=== PATIENT | male | born 1965 | race Caucasian/White ===

== ENCOUNTER → 2016-12-09 | Outpatient (CLI) | payer MEDICARE ==
[~2016-12-09] MED LIST: ASPIR 8181 MG PO; CRESTOR40 MG PO; DOXYCYCLINE HY100 M2 PO; JANUVIA 50 MG T50 MG PO; LEVAQUIN750 MG PO; METOPROLOL SUCC50 MG PO; NEURONTIN 300300 MG PO; NORVASC 5 MG TAB5 MG PO; PERCOCET 5-3251 EACH PO; PROTONIX40 MG PO; VALIUM 2 MG TAB2 MG PO; ZETIA 10 MG TAB10 MG PO
[2016-12-09 12:20] LABS: BUN/CREATININE RATIO 19 (0-10)
== END ==
LOC: LAB 10:08
PROVIDERS: Internal Medicine Cardiovascular Disease
DX: E11.8 Type 2 diabetes mellitus with unspecified complications (principal); E78.2 Mixed hyperlipidemia; R79.89 Other specified abnormal findings of blood chemistry
CPT/HCPCS: 36415; 80053; 80061; 83036